=== PATIENT | female | born 1985 | race Two or more races ===

== ENCOUNTER 2023-08-30 22:06 | Outpatient (CLI) | payer MEDICAID | END 2023-08-30 23:59 | disposition critical access hospital (66) | LOC: EMS 22:06 | DX: F10.10 Alcohol abuse, uncomplicated (principal) | CPT/HCPCS: A0425; A0427; A0999 ==

== ENCOUNTER 2023-08-30 22:27 | Emergency (ER) | payer MEDICAID, OTHER ==
--- NOTE | 2023-08-30 22:31 | ED Physician Documentation ---
History of Present Illness - Stated complaint Stated Complaint: ETOH, DOESN'T FEEL GOOD - History obtained from History obtained from: Patient, EMS - Additonal information Additional information: HPI is predominantly provided by EMS; patient is intoxicated and provides very little in the way of HPI/ROS. EMS reports that patient's boyfriend called 911 tonight. The patient says she had 2 vodka drinks tonight. When asked patient the reason for her ED visit, she says "I feel sick" (per patient). When asked her to elaborate, she indicates she has been having nausea and vomiting tonight. She answers few of my questions, does not make any eye contact. Patient was given 4 mg IV Zofran by EMS NOTEMAN. Review of Systems Unable to obtain: Intoxicated PD PAST MEDICAL HISTORY - Allergies Allergies/Adverse Reactions: Allergies Allergy/AdvReac Type Severity Reaction Status Date / Time Unable to Assess Allergy Verified 08/30/23 22:36 PD ED PE NORMAL - Vitals Vital signs reviewed: Yes - General General: Other (opens eyes briefly when asked to but makes no eye contact. answers few questions, mumbles answers when she provides them) - HEENT HEENT: Atraumatic, PERRL, EOMI - Cardiac Cardiac: RRR, No murmur - Respiratory Respiratory: No respiratory distress, Clear bilaterally - Abdomen Abdomen: Soft, Non tender - Neuro Neuro: Other (unable to ascertain orientation due to not answering place, time questions (provides name)) Results - Vitals Vitals: Oxygen O2 Source Room air - Labs Labs: Laboratory Tests 08/30/23 08/30/23 08/30/23 22:41 22:41 23:32 WBC 12.4 H RBC 4.64 Hgb 13.7 Hct 41.2 MCV 88.8 MCH 29.5 MCHC 33.3 RDW 13.2 Plt Count 407 MPV 9.3 Neut # (Auto) 8.9 H Lymph # (Auto) 2.6 Carter # (Auto) 0.7 Eos # (Auto) 0.1 Baso # (Auto) 0.1 Absolute Nucleated RBC 0.00 Nucleated RBC % 0.0 Sodium 138 Potassium 3.0 L Chloride 102 Carbon Dioxide 25 Anion Gap 11.0 BUN 7 Creatinine 0.7 Estimated GFR (MDRD) 94 Glucose 123 H Calcium 9.7 Total Bilirubin 0.4 AST 14 ALT 12 Alkaline Phosphatase 45 Total Protein 7.6 Albumin 4.6 Globulin 3.0 Albumin/Globulin Ratio 1.5 Lipase 377 H Serum HCG, Qual NEGATIVE Urine Color LIGHT YELLOW Urine Clarity CLEAR Urine pH 6.0 Ur Specific [place] 1.010 Urine Protein NEGATIVE Urine Glucose (UA) NEGATIVE Urine Ketones NEGATIVE Urine Occult Blood NEGATIVE Urine Nitrite NEGATIVE Urine Bilirubin NEGATIVE Urine Urobilinogen 0.2 (NORMAL) Ur Leukocyte Esterase NEGATIVE Ur Microscopic Review NOT INDICATED Urine Culture Comments NOT INDICATED Urine Opiates Screen NEGATIVE Ur Buprenorphine Scrn NEGATIVE Ur Oxycodone Screen NEGATIVE Urine Methadone Screen NEGATIVE Ur Barbiturates Screen NEGATIVE Ur Tricyclics Screen NEGATIVE Ur Phencyclidine Scrn NEGATIVE Ur Amphetamine Screen NEGATIVE U Methamphetamines Scrn NEGATIVE U Benzodiazepines Scrn NEGATIVE Urine Cocaine Screen NEGATIVE U Cannabinoids Screen POSITIVE H Ur Drug Screen Comment CUTOFF CONC BELOW: Ethyl Alcohol 190.1 PD Medical Decision Making - ED course Complexity details: reviewed results, re-evaluated patient, considered differential, d/w patient ED course: On reevaluation, the patient is now AAOx3, smiling, pleasant and conversant. Her speech is slightly slurred, but her answers are appropriate and accurate. She says she feels well and that her nausea and vomiting have resolved. Patient was given 1 L normal saline during her ED stay. Patient tells me that she has Zofran at home and that it is typically quite effective when she has nausea/vomiting but she did not think to take it tonight. Results discussed with patient. Her serums ethanol level is 0.190. Urine drug screen positive for cannabinoids. hCG negative, normal urinalysis. Potassium is low (3.0), and she is given 25 meq potassium bicarbonate p.o. prior to discharge. Lipase is elevated (377), but she has no abdominal pain complaints nor tenderness on exam, and this is is felt to be an incidental finding. Return precautions are reviewed. I advised her to seek follow-up with her primary care provider and to mention the low potassium and the elevated lipase when she does. Departure - Departure Disposition: 01 Home, Self Care Clinical Impression: Hypokalemia Alcohol intoxication Qualifiers: Complication of substance-induced condition: uncomplicated Qualified Code(s): F10.920 - Alcohol use, unspecified with intoxication, uncomplicated Condition: Good Instructions: ED Alcohol Intoxication, ED Potassium Deficiency Comments: Aside from your elevated alcohol level, the only other notable abnormalities on your blood tests tonight were a low potassium level (for which you were given a one-time dose of oral potassium before being discharged from the emergency department), and an elevated lipase. Lipase is a pancreatic enzyme. An elevated lipase can indicate inflammation of the pancreas (pancreatitis); as we discussed, this seems unlikely in your case, as pancreatitis typically is associated with significant upper abdominal pain and tenderness. I suspect your elevated lipase is incidental and may not represent any abnormal process. You should mention your low potassium and elevated lipase to your primary care provider when you next follow-up with them, as they might recommend rechecking these labs. Forms: PCP List Discharge Date/Time: 08/31/23 01:30
[2023-08-30] MEDS: SODIUM CHLORIDE 0.9% 1,000 ML IV STA (22:38)
[2023-08-30 22:51] LABS: BASOPHILS # (AUTO) 0.1 10^3/uL (0.0-0.1); BASOPHILS % (AUTO) 0.6 %; EOSINOPHILS # (AUTO) 0.1 10^3/uL (0.0-0.7); EOSINOPHILS % (AUTO) 0.6 %; HCT - HEMATOCRIT 41.2 % (37.0-47.0); HGB - HEMOGLOBIN 13.7 g/dL (12.0-16.0); LYMPHOCYTES # (AUTO) 2.6 10^3/uL (1.5-3.5); LYMPHOCYTES % (AUTO) 20.7 %; MEAN CORPUSCULAR HEMOGLOBIN 29.5 pg (27.0-31.0); MEAN CORPUSCULAR HGB CONC 33.3 g/dL (32.0-36.0); MEAN CORPUSCULAR VOLUME 88.8 fL (81.0-99.0); MEAN PLATELET VOLUME 9.3 fL (7.9-10.8); MONOCYTES # (AUTO) 0.7 10^3/uL (0.0-1.0); MONOCYTES % (AUTO) 5.9 %; NEUTROPHILS # (AUTO) 8.9 10^3/uL (1.5-6.6); NEUTROPHILS % (AUTO) 71.6 %; PLT - PLATELET COUNT 407 10^3/uL (130-450); RED BLOOD COUNT 4.64 10^6/uL (4.20-5.40); RED CELL DISTRIBUTION WIDTH 13.2 % (12.0-15.0); WHITE BLOOD COUNT 12.4 x10^3/uL (4.8-10.8)
[2023-08-30 23:05] LABS: ALBUMIN 4.6 g/dL (3.2-5.5); ALBUMIN/GLOBULIN RATIO 1.5 (1.0-2.2); ALKALINE PHOSPHATASE 45 IU/L (42-121); ALT ALANINE AMINOTRANSFERASE 12 IU/L (10-60); AST ASPARTATE AMINOTRANSFERASE 14 IU/L (10-42); BILIRUBIN,TOTAL 0.4 mg/dL (0.2-1.0); BUN - BLOOD UREA NITROGEN 7 mg/dL (6-20); CALCIUM 9.7 mg/dL (8.5-10.3); CARBON DIOXIDE - CO2 25 mmol/L (21-32); CHLORIDE 102 mmol/L (101-111); CREATININE 0.7 mg/dL (0.6-1.3); ETOH - ETHANOL 190.1 mg/dL; GFR - MDRD 94 (>89); GLUCOSE 123 mg/dL (74-104); LIPASE 377 U/L (11-82); SODIUM 138 mmol/L (135-145); TOTAL PROTEIN 7.6 g/dL (6.4-8.9)
[2023-08-30 23:22] LABS: HCG,QUALITATIVE BLOOD NEGATIVE
[2023-08-31] LABS: BILIRUBIN,URINE NEGATIVE (NEGATIVE); GLUCOSE, URINE (UA) NEGATIVE (NEGATIVE); KETONES,URINE (UA) NEGATIVE (NEGATIVE); LEUKOCYTE ESTERASE, URINE NEGATIVE (NEGATIVE); NITRITE,URINE NEGATIVE (NEGATIVE); OCCULT BLOOD,URINE NEGATIVE (NEGATIVE); PROTEIN,URINE NEGATIVE (NEGATIVE); UROBILINOGEN,URINE 0.2 (NORMAL) E.U./dL (NORMAL)
[2023-08-31 00:01] LABS: CLARITY,URINE CLEAR (CLEAR)
[2023-08-31 00:14] LABS: AMPHETAMINE SCREEN,URINE NEGATIVE (NEGATIVE); BARBITURATE SCREEN,UR NEGATIVE (NEGATIVE); BENZODIAZEPINES SCREEN, URINE NEGATIVE (NEGATIVE); BUPRENORPHINE SCREEN, URINE NEGATIVE (NEGATIVE); COCAINE SCREEN URINE NEGATIVE (NEGATIVE); METHADONE SCREEN, URINE NEGATIVE (NEGATIVE); METHAMPHETAMINES SCREEN, URINE NEGATIVE (NEGATIVE); OPIATE SCREEN, URINE NEGATIVE (NEGATIVE); OXYCODONE SCREEN, URINE NEGATIVE (NEGATIVE); THC CANNABINOID SCREEN, URINE POSITIVE (NEGATIVE); TRICYCLIC ANTIDEPRESSANT,URINE NEGATIVE (NEGATIVE)
[2023-08-31] MEDS: POTASSIUM BICARB 25 MEQ TABLET PO STA (01:14)
[2023-08-31 01:49] VITALS: BP 120/88; O2SAT 99
== END 2023-08-31 01:30 | disposition home or self-care (01) ==
LOC: ED 22:27
DX: F10.129 Alcohol abuse with intoxication, unspecified (principal); Y90.6 Blood alcohol level of 120-199 mg/100 ml; E87.6 Hypokalemia; R74.8 Abnormal levels of other serum enzymes
CPT/HCPCS: 36415; 80053; 80306; 81003; 82077; 83690; 84703; 85025; 96360; 96361; 99284; A9270; 81001; 87086